=== PATIENT | male | born 1990 | race African-American/Black ===

== ENCOUNTER 2017-03-11 08:08 | Inpatient (IN) | payer BC, OTHER ==
[~2017-03-11] VITALS: Ht 185.4 cm; Wt 103.4 kg
[~2017-03-11 08:08] MED LIST: Gabapentin PO; HYDR-3895 PO; QUET200T PO
[2017-03-12 19:15] VITALS: BP_SYST 129; BP_SYST 139; BP_DIAS 56; BP_DIAS 82
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
[2017-03-12 21:30] VITALS: BP 139/82
[2017-03-13] VITALS (7 sets, daily range): BP systolic 108–147; BP diastolic 66–93
--- NOTE | 2017-03-13 00:12 | NUR ---
PRN Robaxin, Benadryl, and one time Ativan Pt c/o body aches 5/10, anxiety, restlessness, and inability to sleep. He has visible sweat on the forehead and mild tremors. CIWA 9 and COWS 3. PRN Robaxin, Benadryl, and one time Ativan administered per orders.
--- NOTE | 2017-03-13 01:12 | NUR ---
PRN Robaxin, Benadryl, and one time Ativan reassessment PRN Robaxin, Benadryl, and one time Ativan effective. Pt is lying in bed resting with eyes closed. Respirations even and unlabored. Safety measures in place.
[2017-03-13 01:52] LABS: *AMPHETAMINE, URINE NEGATIVE (NEGATIVE); *BARBITURATE, URINE NEGATIVE (NEGATIVE); *CANNABINOID, URINE NEGATIVE (NEGATIVE); *COCCAINE, URINE POSITIVE (NEGATIVE); *OPIATE, URINE POSITIVE (NEGATIVE); *PHENCYCLIDINE SCREEN,URINE NEGATIVE (NEGATIVE)
[2017-03-13] MEDS ORDERED: MIRT15TA7 PO (02:49)
[2017-03-13] MEDS ORDERED: RANI-563 PO (02:49)
[2017-03-13] MEDS ORDERED: HYDR-3026 PO (02:49)
[2017-03-13] MEDS ORDERED: GABA600T2 PO (02:49)
[2017-03-13] MEDS ORDERED: GABA800T2 PO (02:49)
[2017-03-13] MEDS ORDERED: NALT50TA PO (02:49)
[2017-03-13] MEDS ORDERED: QUET200T PO (02:49)
[2017-03-13] MEDS ORDERED: CLON0.2T PO (02:49)
[2017-03-13] MEDS ORDERED: ESCI20TA37 PO (02:49)
[2017-03-13] MEDS ORDERED: QUET100T PO (02:49)
[2017-03-13] MEDS ORDERED: TIZA4TAB4 PO (02:49)
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
--- NOTE | 2017-03-13 07:20 | NUR ---
END OF SHIFT Report provided to day shift nurse. Pt is a 26 yo male admitted to [facility] on 03/12 at 1935 for BZD, ETOH, and Opiate dependence w/ a h/o using cocaine, LSD, and mushroom. Allergic to naloxone, full code status, and on a regular diet. PRN Robaxin, PRN Benadryl, and One time Ativan administered. 0400 CIWA 2 and COWS 1. He drank 600mL and slept for 5 hours. Fall and seizure precautions in place. Bed is down with call light in reach.
[2017-03-13 08:20] LABS: ETHANOL < 3 MG/DL (0-0)
[2017-03-13 08:22] LABS: BASOPHILS # (AUTO) 0.1 K/uL (0.0-8.0); BASOPHILS % (AUTO) 0.9 % (0.0-2.0); EOSINOPHILS # (AUTO) 0.2 K/uL (0.0-0.7); EOSINOPHILS % (AUTO) 2.9 % (0.0-7.0); HEMATOCRIT 42.6 % (40-50); HEMOGLOBIN 14.1 G/DL (14.0-18.0); LYMPHOCYTES # (AUTO) 2.1 K/UL (0.8-4.8); LYMPHOCYTES % (AUTO) 33.6 % (20.5-51.5); MEAN CORPUSCULAR HEMOGLOBIN 29.5 UUG (27.0-31.0); MEAN CORPUSCULAR HGB CONC 33 g/dL (32.0-37.0); MEAN CORPUSCULAR VOLUME 89.1 FL (82.0-92.0); MONOCYTES # (AUTO) 0.8 K/UL (0.1-1.30); MONOCYTES % (AUTO) 12.6 % (0.0-11.0); PLATELET COUNT (AUTO) 241 K/UL (150-450); RED BLOOD CELL COUNT(AUTO) 4.79 MIL/UL (4.7-6.1)
[2017-03-13 08:25] LABS: ALANINE AMINOTRANSFERASE 25 U/L (16-63); ALKALINE PHOSPHATASE 86 U/L (50-136); ASPARTATE AMINOTRANSFERASE 19 U/L (15-37); BILIRUBIN,TOTAL 0.3 mg/dL (0.2-1.0); CARBON DIOXIDE 30 mmol/L (21-32); CHLORIDE 104 mmol/L (98-107); CREATININE 0.9 mg/dL (0.6-1.3); GLUCOSE 106 mg/dL (74-106); MAGNESIUM 1.8 mg/dL (1.8-2.4); POTASSIUM 3.5 mmol/L (3.5-5.1); TOTAL PROTEIN, SERUM 6.4 g/dL (6.4-8.2)
[2017-03-13 08:33] LABS: UREA NITROGEN, BLOOD 14 mg/dL (7-18)
[2017-03-13 08:34] LABS: WHITE BLOOD COUNT (AUTO) 6.2 K/UL (4.0-11.2)
[2017-03-13 08:58] LABS: THYROID STIMULATING HORMONE 1.264 mIU/mL (0.358-3.740)
--- NOTE | 2017-03-13 10:24 | NUR ---
Medication Refusal/MD Communication Pt refused scheduled morning medication d/t having an upset stomach and wanting to see MD first. MD made aware, with no further orders received.
--- NOTE | 2017-03-13 10:25 | NUR ---
PPD Refusal Pt refuses PPD administration at this time. Prefers to speak with MD first. May reconsider.
--- NOTE | 2017-03-13 11:50 | NUR ---
1115 Diazepam Held [place]ombstone Setter held medication ordered d/t sedation. Dr. Luna on the unit and aware. Re-evaluate for next scheduled dose. Will continue to monitor, support and encourage according to plan of care.
--- NOTE | 2017-03-13 18:28 | NUR ---
PRN Robaxin Pt complain of generalized body aches. Asks for Robaxin by name. Eyelet Maker administers medication per MD order and pt tolerated well.
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
--- NOTE | 2017-03-13 21:43 | NUR ---
PRN Clonidine, Robaxin, and Zofran Pt reports anxiety, restlessness, body aches, and nausea. He is observed with flushed face. PRN Clonidine, Robaxin, and Zofran administered.
--- NOTE | 2017-03-13 22:43 | NUR ---
PRN Clonidine, Robaxin, and Zofran reassessment Pt reports PRN Clonidine somewhat effective. He continues to have some anxiety. Nausea and body aches are relieved.
--- NOTE | 2017-03-13 23:27 | NUR ---
PRN Motrin, Mylanta, and Vistaril Pt reports anxiety, headache, and acid indigestion. He explains that when he closes his eyes he visualizes traumatic experiences from his past. He is restless in bed, his face is flushed, and skin is moist. Provided support. COWS 12 and CIWA 9. Pt denies the need for subutex at this time. Valium taper due. PRN Motrin, Mylanta, Vistaril administered. HS Seroquel administered closer to bed time per pt. request.
[2017-03-14] VITALS: BP 144/91
--- NOTE | 2017-03-14 00:27 | NUR ---
PRN Motrin, Mylanta, and Vistaril reassessment VT Motrin, Mylanta, and Vistaril effective. Pt is lying in bed resting with eyes closed. Respirations even and unlabored. Safety measures in place.
[2017-03-14 04:45] VITALS: BP 128/72
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
--- NOTE | 2017-03-14 07:32 | NUR ---
START OF SHIFT Received report from night nurse. 26 year old male patient admitted on 03/11/17 for benzos, opiates and ETOH withdrawals. Reports allergies to naloxone. Pt reports hx of seizures, last seniure was in september 2016. Pt remains safe throughout hospitalization. Most recent COWS are 5 and CIWA 3. PRN Robaxin, Clonidine, Motrin, Mylanta and Vistaril administered and effective. Pt slept for 8 hours. Pt v/s remain WNL. All needs met at this time. Will continue to monitor.
[2017-03-14 08:37] VITALS: BP 119/87
[2017-03-14 09:07] LABS: HEPATITIS B SURFACE AG Negative (Negative)
[2017-03-14 12:47] VITALS: BP 104/65
[2017-03-14 17:06] VITALS: BP 100/74
--- NOTE | 2017-03-14 19:13 | NUR ---
END OF SHIFT Endorsed to night nurse. 26 year old male patient admitted on 03/11/17 for benzos, opiates and ETOH withdrawals. Reports allergies to naloxone. Pt tolerates ordered taper well, and symptoms of withdrawal discomfort is managed well with ordered medications. No PRNs needed or administered. Pt v/s remain WNL. All needs met at this time. Most recent COWS 5, CIWA 5. Night nurse will continue to monitor.
--- NOTE | 2017-03-14 19:30 | NUR ---
START OF SHIFT Received report from day shift nurse. Pt is a 26 y/o male, admitted on 03/11/17 for ETOH, benzo, and opiate withdrawl. Pt dependent on xanax, ETOH (whiskey), heroin, cocaine, LSD, and mushrooms. Pt is A/O x4, full code, allergic to naloxone, regular diet, seizure and fall precautions. Pt reports PMH of seizure (r/t w/d x 3, last 09/18), anxiety, depression and hx of broken ribs and herpes. Pt is on day 2 of 5 Valium taper and day 1 of 4 Subutex taper. Pt slept 5 hours last night and was awake during day shift. Pt did not receive any PRN meds during day shift. Last COW 7, CIWA 8 at 1600. Upon greeting, pt was sitting in bed drawing. Pt was complaining of body aches, nausea, anxiety and agitation. Denies vomiting or diarrhea. Safety measures in place, call light within reach. Will continue to monitor.
[2017-03-14 20:00] VITALS: BP 112/91
--- NOTE | 2017-03-14 21:16 | NUR ---
PRN ZOFRAN, ROBAXIN, AND MOTRIN ADMINISTRATION PRN zofran, robaxin, and motrin given d/t pt reporting intermittent moderate nausea, generalized body aches, headache, and pain in lower back and shins. Respirations 16, even and unlabored. Safety measures in place. Call light within reach. Will continue to monitor.
--- NOTE | 2017-03-14 22:16 | NUR ---
PRN [place] MOTRIN REASSESSMENT Pt is laying in bed with eyes closed. Respirations are 18, even and unlabored. Safety measures in place. Call light within reach.
--- NOTE | 2017-03-15 | NUR ---
CIWA AND COW DEFERRED CIWA and COW deferred. Pt is laying down with eyes closed. Respirations 16, even and unlabored. Safety measures in place. Call light within reach.
--- NOTE | 2017-03-15 | NUR ---
REFUSED VITALS Pt refused 0000 vitals and did not want to be awaken. Respirations 16, even and unlabored. Safety measures in place. Call light within reach.
[2017-03-15 04:00] VITALS: BP 140/85
--- NOTE | 2017-03-15 04:56 | NUR ---
PRN CLONIDINE, VALIUM, ZOFRAN PRN clonidine, valium, zofran given. Pt reports anxiety, agitation, body aches, chills, sweats, runny nose, nausea, pin and needles in extremities. BP 140/85, HR 84, COW 8, CIWA 11. Safety measures in place. Call light within reach. Will continue to monitor.
--- NOTE | 2017-03-15 05:56 | NUR ---
PRN CLONIDINE, VALIUM, AND ZOFRAN REASSESSMENT Pt is laying in bed with eyes closed. Respirations are 18, even and unlabored. Safety measures in place. Call light within reach.
--- NOTE | 2017-03-15 05:56 | NUR ---
COW AND CIWA REASSESSMENT DEFERRED COW and CIWA reassessment after PRN Clonidine and Valium deferred d/t pt laying in bed with eyes closed. Respirations are 18, even and unlabored. Safety measures in place, call light within reach.
--- NOTE | 2017-03-15 07:06 | NUR ---
END OF SHIFT Report given to day shift nurse. Pt is a 26 y/o male, admitted on 03/11/17 for ETOH, benzo, and opiate withdrawl. Pt dependent on xanax, ETOH (whiskey), heroin, cocaine, LSD, and mushrooms. Pt is A/O x4, full code, allergic to naloxone, regular diet, seizure and fall precautions. Pt reports PMH of seizure (r/t w/d x 3, last 09/18), anxiety, depression and hx of broken ribs and herpes. Pt started 5 day Valium taper on 03/13/17 and 4 day Subutex taper on 03/14/17. Pt received PRN robaxin, motrin, and zofran at 2116 for body aches, moderate nausea, headache, low back pain. Pt also complained of anxiety, agitation, runny nose, and pins and needles sensation. COW 11, CIWA 15 at 2100. Pt slept for 8 hours after PRN medication, suggesting relief of symptoms. Upon awaking pt reported night terrors, night sweats, chills, body aches, runny nose, nausea, anxiety, agitation, low back pain and pins and needles sensation. COW 8, CIWA 11 at 0400. PRN Valium, Clonidine, Zofran given for withdrawal symptoms. Pt was laying in bed with eyes closed after last PRN medications (COW/CIWA reassessment deferred). Last vitals: T 98.8, HR 84, R 18, 02 97, BP 140/85. Intake 1710 ml, void x 2. Last BM on 03/13/17. Respirations 18, even and unlabored. Lungs clear upon auscultation. Denies vomiting, diarrhea, chest pain. Safety measures in place. Call light within reach. Pts needs have been met.
--- NOTE | 2017-03-15 07:45 | NUR ---
START OF SHIFT NOTE Received report from night nurse, 26 year old male patient admitted for benzo, opiates and ETOH withdrawals. Reports allergies to naloxone. Pt reports PMH of seizures, last seizure was in september 2016. Pt were given PRN Zofranx2, Robaxin, Motrin, Clonidine Valium and effective. Pt slept for 8 hours. Pt v/s remain WNL. Received pt alert awake oriented x4 no s/s of distress noted, Skin warm and dry to touch. Educated pt regarding plan of the day and medication regimen with good verbal understanding. All safety measures in place, call light within reach. Will continue to monitor.
[2017-03-15 08:00] VITALS: BP 105/62
[2017-03-15 12:00] VITALS: BP 102/60
--- NOTE | 2017-03-15 14:13 | NUR ---
PRN ZOFRAN Pt c/o of nausea, x1 emesis present also. PRN Zofran 4mg SL administered as ordered. Will cont to monitor for effectiveness.
--- NOTE | 2017-03-15 14:33 | NUR ---
ZOFRAN PO REASSESSMENT Pt reported medication was not effective, reported x2 emesis.
--- NOTE | 2017-03-15 15:34 | NUR ---
PRN IM ZOFRAN Pt reported emesis x2 Po Zofran did not effective. Administered PRN IM Zofran as ordered. Will cont to monitor for effectiveness.
[2017-03-15 16:00] VITALS: BP 135/96
--- NOTE | 2017-03-15 16:02 | NUR ---
SUBUTEX/VALIUM x1 GIVEN COWS-10, CIWA-11, one time Subutex 4mg SL/Valium 10mg Po given. Will monitor for effectiveness.
--- NOTE | 2017-03-15 16:04 | NUR ---
ZOFRAN IM REASSESSMENT Pt reported Zofran IM effective nausea and emesis improved.
--- NOTE | 2017-03-15 16:32 | NUR ---
REASSESSMENT SUBUTEX 4 MG SL Per patient PRN Subutex was effective in reducing pt;s withdrawal symptoms. COWS-7.
--- NOTE | 2017-03-15 17:02 | NUR ---
REASSESSMENT VALIUM 10 MG PO Per patient x1 Valium was effective in reducing pt's withdrawal symptoms. CIWA-6.
--- NOTE | 2017-03-15 19:00 | NUR ---
END OF SHIFT NOTE Pt presented with anxiety, agitation, chills, nausea, vomiting. Pt was given PRN Zofran Po ineffective, Zofran IM was effective, X1 dose Subutex 4mg /Valium 10mg effective. Pt cont with Subutex and Valium taper tolerating well. Pt attended groups and activities. Vital signs WNL. Skin intact warm and dry to touch. Last CIWA-6, COWS-7. Encourage Po fluids as tolerated. All safety measures in place, call light within reach. Pt endorsed to night nurse in stable condition.
--- NOTE | 2017-03-15 19:00 | NUR ---
START OF SHIFT NOTE: Patient is a 26 year old male admitted to [facility] on 03/11/2017 for Benzodiazepines, Alcohol, Opioid, and Cocaine dependence. Patient continue 4 Day Subutex since 03/14/2017 and 5 Day Valium taper since , tolerated well without ASE. Patient reports Allergy to Naloxone, is on Full Code, Regular Diet, is Fall and Seizures Precautions. PMH: Anxiety; Depression; Seizures r/t withdrawal x3. Last Seizures was on "09/2016 r/t withdrawal. History of broken ribs, History of Herpes. Patient reports substance use: 1." Xanax PO 2 mg every day x 6 months. Last used on 03/09/2017". 2. "ETOH/Whiskey PO 325 ml every day x 6 months. Last drank 325 ml on 03/11/2017". 3. "Heroin via IV 3-4 grams every day x 6 months. Last used 1 gram on 03/12/2017". 4. "Cocaine 1 gram via IV x 1 week x 6 months. Last used 1 gram on 03/10/2017". 5. "LSD occasional use". 6. "Mushrooms occasional use". Patient report's multiple detox and rehabilitation programs. "Last Detox was in [place] on 2015". Upon endorsement by day shift nurse, patient is alert and oriented x4. VS WNL. Patient denies pain now: "0/10". COWS 7, CIWA 7. The patient reported the following symptoms of withdrawal: anxiety, agitation, nervousness, tremors that can be felt, diaphoresis, restless legs, and fatigue. Patient denies SI/HI. Upon initial assessment, patient's Respirations unlabored and even. Patient denies SOB and chest pain. Lungs Sounds are clear bilaterally. Bowel Sounds active in all x4 quadrants. Abdomen is soft and non-tender. PERRLA, brisk capillary refill, economic consultant equal and strong. Skin is intact, warm and dry to touch. Encourage fluids as tolerated. Encourage to attend activities groups. All needs met. Safety measures on place. Call light within reach, bed in lowest position and locked, padded rails up bilaterally rails up bilaterally. Patient endorsed by day shift nurse. Report received. Will continue to monitor closely.
[2017-03-15 20:00] VITALS: BP 133/87
[2017-03-16] VITALS: BP 140/87
--- NOTE | 2017-03-16 00:36 | NUR ---
PRN ZOFRAN 4 MG PO RAPDIS SL ADMINISTRATION. Patient c/o nausea and vomiting, and asked aid. PRN Zofran 4 mg SL administrated as ordered. Patient tolerated well. All needs met. Safety measures on place. Call light within reach, bed in lowest position and locked, padded rails up bilaterally rails up bilaterally. Will continue to monitor closely.
--- NOTE | 2017-03-16 00:36 | NUR ---
PRN CLONIDINE 0.1 MG 1 TAB PO Patient c/o increased anxiety. PRN Clonidine 0.1 mg 1 tab PO administrated with full glass of water as ordered. Patient tolerated well. All needs met. Safety measures on place. Call light within reach, bed in lowest position and locked, padded rails up bilaterally rails up bilaterally. Will continue to monitor closely.
--- NOTE | 2017-03-16 01:36 | NUR ---
RE ASSESSMENT Patient reported PRN Zofran 4 mg SL was effective. No more nausea and vomiting. All needs met. Safety measures on place. Call light within reach, bed in lowest position and locked, padded rails up bilaterally rails up bilaterally. Will continue to monitor closely.
--- NOTE | 2017-03-16 01:36 | NUR ---
RE-ASSESSMENT Patient reports that PRN Clonidine PO was not effective. Patient c/o increased anxiety. Administered Vistaril 50 mg PO as ordered for anxiety.
--- NOTE | 2017-03-16 01:41 | NUR ---
PRN ROBAXIN 750 MG 1 TAB PO AND PRN VISTARIL 50 MG 2 CAPS. PO ADMINISTRATION Patient c/o myalgia and increased anxiety. PRN Robaxin 750 mg 1 tab PO and PRN Vistaril 50 mg 2 caps PO administrated with full glass of water as ordered. Patient tolerated well. All needs met. Safety measures on place. Call light within reach, bed in lowest position and locked, padded rails up bilaterally rails up bilaterally. Will continue to monitor closely.
--- NOTE | 2017-03-16 02:41 | NUR ---
RE-ASSESSMENT Patient is sleeping. Respirations even and unlabored. RR:15. PRN Robaxin 750 mg PO for myalgia and PRN Vistaril 50 mg 2 caps PO were effective. All needs met. Safety measures on place. Call light within reach, bed in lowest position and locked, padded rails up bilaterally rails up bilaterally. Will continue to monitor closely.
[2017-03-16 04:00] VITALS: BP 110/59
--- NOTE | 2017-03-16 07:08 | NUR ---
END OF SHIFT NOTE: Patient is a 26 year old male admitted to [facility] on 03/11/2017 for Benzodiazepines, Alcohol, Opioid, and Cocaine dependence. Patient continue 4 Day Subutex since 03/14/2017 and 5 Day Valium taper since , tolerated well without ASE. Patient reports Allergy to Naloxone, is on Full Code, Regular Diet, is Fall and Seizures Precautions. PMH: Anxiety; Depression; Seizures r/t withdrawal x3. Last Seizures was on "09/2016 r/t withdrawal. History of broken ribs, History of Herpes. Patient remains compliant with treatment, medications, and diet regime. Patient reports NKA, is Full Code, Regular Diet. Patient is Fall and Seizures Precautions. VS at 0400: T: 98'1, BP: 110/59, HR:75, RR:16, RA O2Sat: 96%. Patient denies any pain now: "0/10". COWS 4, CIWA 3 at 0400. Respirations unlabored and even. Skin is intact, warm and dry to touch. Encourage fluids as tolerated. Encourage to attend activities groups. PRN Zofran 4 mg RAPDIS SL administrated @0036 was effective. PRN Clonidine 0.1 mg 1 tab PO administrated @0036 for anxiety was not effective, and PRN Robaxin 750 mg 1 tab PO administrated @0141 for myalgia, and PRN Vistaril 50 mg 2 caps PO administrated @ 0141 for anxiety were effective. Patient slept 4 hours, intake 1,183 ml, voided x2, emesis x4. All needs met. Safety measures on place. Call light within reach, bed in lowest position and locked, padded rails up bilaterally. Patient endorsed to day shift nurse.
--- NOTE | 2017-03-16 07:30 | NUR ---
START OF SHIFT Pt 26 y/o male admitted for bzd, etoh, and opiate dependence. Pt received in room awake watching television. Pt alert and oriented to name, place, and time. Perrla. Skin warm and slightly moist to touch. Respirations even and unlabored. Pt appears slightly anxious with pressured speech during conversation. It was reported that pt slept for 4 hours last night. Bed on lowest position with side rails x2 up for safety. Call light within reach. No distress noted at this time.
[2017-03-16 08:03] VITALS: BP 125/89
--- NOTE | 2017-03-16 12:56 | NUR ---
PRN pt states feels anxious. Vistaril po prn per MD order given and tolerated well.
--- NOTE | 2017-03-16 12:57 | NUR ---
PRN Pt states feels very anxious. Pt with pressured speech noted. Catapres po prn per MD order given and tolerated well.
--- NOTE | 2017-03-16 12:58 | NUR ---
PRN Pt states has body aches 6/10. Robaxin po prn per MD order given and tolerated well.
[2017-03-16 12:59] VITALS: BP 122/78
--- NOTE | 2017-03-16 13:57 | NUR ---
LAUREN FERNANDES Pt observed in room laying on bed watching television. No distress noted at this time.
--- NOTE | 2017-03-16 13:58 | NUR ---
PRN EVAL Pt states body aches 08/14.
[2017-03-16 17:18] VITALS: BP 130/73
--- NOTE | 2017-03-16 18:42 | NUR ---
END OF SHIFT Pt 26 y/o male admitted for bzd, etoh, and opiate dependence. Pt alert and oriented to name, place, and time. Perrla. Skin warm and slightly moist to touch. Respirations even and unlabored. Pt with periods of anxiety this morning. Pt observed observed mostly in room , but did attend group activity in the afternoon. Pt medication compliant and tolerated well. No ASE noted. Bed on lowest position with side rails x2 up for safety. Call light within reach. No distress noted at this time.
--- NOTE | 2017-03-16 18:50 | NUR ---
START OF SHIFT NOTE: Patient is a 26 year old male admitted to [facility] on 03/11/2017 for Benzodiazepines, Alcohol, Opioid, and Cocaine dependence. Patient continue 4 Day Subutex since 03/14/2017 and 5 Day Valium taper since , tolerated well without ASE. Patient reports Allergy to Naloxone, is on Full Code, Regular Diet, is Fall and Seizures Precautions. PMH: Anxiety; Depression; Seizures r/t withdrawal x3. Last Seizures was on "09/2016 r/t withdrawal. History of broken ribs, History of Herpes. Patient reports substance use: Xanax PO 2 mg every day x 6 months. Last used on 03/09/2017. ETOH/Whiskey PO 325 ml every day x 6 months. Last drank 325 ml on 03/11/2017. Heroin via IV 3-4 grams every day x 6 months. Last used 1 gram on 03/12/2017. Cocaine 1 gram via IV x 1 week x 6 months. Last used 1 gram on 03/10/2017. LSD occasional use. Mushrooms occasional use . Upon endorsement by day shift nurse, patient is alert and oriented x4. VS WNL. Patient reports pain now: "0/10". COWS 5, CIWA 5. The patient reported the following symptoms of withdrawal: anxiety, agitation, nervousness, tremors that can be felt, diaphoresis, restless legs, and fatigue. Patient denies SI/HI. Upon initial assessment, patient's Respirations unlabored and even. Patient denies SOB and chest pain. Lungs Sounds are clear bilaterally. Bowel Sounds active in all x4 quadrants. Abdomen is soft and non-tender. PERRLA, brisk capillary refill, manager sas equal and strong. Skin is intact, warm and dry to touch. Encourage fluids as tolerated. Encourage to attend activities groups. All needs met. Safety measures on place. Call light within reach, bed in lowest position and locked, padded rails up bilaterally rails up bilaterally. Patient endorsed by day shift nurse. Report received. Will continue to monitor closely.
[2017-03-16 20:00] VITALS: BP 150/84
--- NOTE | 2017-03-16 21:03 | NUR ---
PRN ROBAXIN 750 MG 1 TAB PO AND PRN VISTARIL 50 MG 2 CAPS PO ADMINISTRATION Patient c/o myalgia and increase anxiety. PRN Robaxin 750 mg 1 tab PO for myalgia and PRN Vistaril 50 mg 2 caps PO for anxiety administrated with full glass of water as ordered. Patient tolerated well. All needs met. Safety measures on place. Call light within reach, bed in lowest position and locked, padded rails up bilaterally rails up bilaterally. Will continue to monitor closely.
--- NOTE | 2017-03-16 22:03 | NUR ---
RE-ASSESSMENT Patient is sleeping. Respirations even and unlabored. RR:16. PRN Robaxin 750 mg PO for myalgia and PRN Vistaril 50 mg 2 caps PO were effective. All needs met. Safety measures on place. Call light within reach, bed in lowest position and locked, padded rails up bilaterally rails up bilaterally. Will continue to monitor closely.
[2017-03-17] VITALS: BP 114/69
[2017-03-17 04:00] VITALS: BP 115/68
--- NOTE | 2017-03-17 07:12 | NUR ---
END OF SHIFT NOTE: Patient is a 26 year old male admitted to [facility] on 03/11/2017 for Benzodiazepines, Alcohol, Opioid, and Cocaine dependence. Patient continue 4 Day Subutex since 03/14/2017 and 5 Day Valium taper since , tolerated well without ASE. Patient reports Allergy to Naloxone, is on Full Code, Regular Diet, is Fall and Seizures Precautions. PMH: Anxiety; Depression; Seizures r/t withdrawal x3. Last Seizures was on "09/2016 r/t withdrawal. History of broken ribs, History of Herpes. Patient remains compliant with treatment, medications, and diet regime. Patient reports NKA, is on Full Code, Regular Diet. Patient is Fall and Seizures Precautions. Last VS at 0400: T: 97.7, BP: 115/68, HR:61, RR:16, RA O2Sat: 98%. Pain level: "0/10". COWS 5, CIWA 4 at 0400. Respirations unlabored and even. Skin is intact, warm and dry to touch. Encourage fluids as tolerated. Encourage to attend activities groups. PRN Robaxin 750 mg 1 tab PO administrated @ 2103 for myalgia, and PRN Vistaril 50 mg 2 caps PO administrated @ 2103 for anxiety were effective. Patient slept 7 hours, intake 1,376 ml, voided x2. All needs met. Safety measures on place. Call light within reach, bed in lowest position and locked, padded rails up bilaterally. Patient endorsed to day shift nurse.
[2017-03-17 08:00] VITALS: BP 127/85
--- NOTE | 2017-03-17 08:15 | NUR ---
START OF SHIFT NOTE 26 year old male, admitted 03/11/2017 for Benzodiazepines, Alcohol, Opioid, and Cocaine dependence. On a 4 Day Subutex taper beginning 03/14/2017 and 5 Day Valium taper beginning . Pt reports allergy to Naloxone, is on Full Code, Regular Diet, is Fall and Seizures Precautions. PMH: Anxiety; Depression; Seizures r/t withdrawal x3. Last Seizures was on "09/2016 r/t withdrawal. History of broken ribs, History of Herpes. On day 4 of the 5 day Valium taper. On day 3 of the 4 day Subutex taper. Received report from rubber engraver nurse. Last COW 5 and CIWA 4. Left upper arm wound covered with gauze dressing which is dry and intact. Will change dressing and take photo to document healing this shift. 0730 Pt alert and oriented. Reports back and shoulder stiffness and some nausea. Offered PRN medications Catapress and Robaxin with am meds, Catapress if blood pressure within parameters per doctor orders. Pt accepted offer for PRN meds with am medications. Safety measures on place. Call light within reach, bed in lowest position and locked, padded rails up bilaterally. Will continue to monitor.
--- NOTE | 2017-03-17 09:46 | NUR ---
PRN MEDICATION Pt complaint of back pain 12/12. Given Robaxin. Pt complaint of anxiety, given Catapress and Vistaril.
--- NOTE | 2017-03-17 10:40 | NUR ---
PRN REASSESSMENT Pt ambulating in room and hallway, went to patio, no facial grimacing, appears calm, no pressured speech, no distress at this time.
[2017-03-17 12:00] VITALS: BP 118/76
--- NOTE | 2017-03-17 13:35 | NUR ---
PRN MEDICATION REASSESSMENT Pt states relief of nausea after PRN Bentyl dose.
[2017-03-17 17:52] VITALS: BP 131/74
--- NOTE | 2017-03-17 18:54 | NUR ---
END OF SHIFT Pt 26 y/o male admitted for bzd, etoh, and opiate dependence. Pt alert and oriented to name, place, and time. Perrla. Skin warm and slightly moist to touch. Respirations even and unlabored. Pt with periods of anxiety this morning. Pt observed observed mostly in room , but did attend group activity today. Pt was seen by MD today. Pt medication compliant and tolerated well. No ASE noted. Bed on lowest position with side rails x2 up for safety. Call light within reach. No distress noted at this time.
--- NOTE | 2017-03-17 18:54 | NUR ---
START OF SHIFT NOTE: Patient is a 26 year old male admitted to [facility] on 03/11/2017 for Benzodiazepines, Alcohol, Opioid, and Cocaine dependence. Patient continue 4 Day Subutex since 03/14/2017 and 5 Day Valium taper since , tolerated well without ASE. Patient reports Allergy to Naloxone, is on Full Code, Regular Diet, is Fall and Seizures Precautions. PMH: Anxiety; Depression; Seizures r/t withdrawal x3. Last Seizures was on "09/2016 r/t withdrawal. History of broken ribs, History of Herpes. VS: T: 98.8, BP: 139/76, HR:85, RR:17, RA O2Sat: 100%.. Patient reports pain now: "01/11". COWS 5, CIWA 5. The patient reported the following symptoms of withdrawal: anxiety, agitation, nervousness, tremors that can be felt, diaphoresis, restless legs, and fatigue. Patient denies SI/HI. Upon initial assessment, patient's Respirations unlabored and even. Patient denies SOB and chest pain. Lungs Sounds are clear bilaterally. Bowel Sounds active in all x4 quadrants. Abdomen is soft and non-tender. PERRLA, brisk capillary refill, animal care specialist equal and strong. Skin is intact, warm and dry to touch. Encourage fluids as tolerated. Encourage to attend activities groups. All needs met. Safety measures on place. Call light within reach, bed in lowest position and locked, padded rails up bilaterally rails up bilaterally. Patient endorsed by day shift nurse. Report received. Will continue to monitor closely.
[2017-03-17 20:00] VITALS: BP 139/76
[2017-03-18] VITALS: BP 116/72
[2017-03-18 04:00] VITALS: BP 101/60
--- NOTE | 2017-03-18 07:08 | NUR ---
END OF SHIFT NOTE: Patient is a 26 year old male admitted to [facility] on 03/11/2017 for Benzodiazepines, Alcohol, Opioid, and Cocaine dependence. Patient continue 4 Day Subutex since 03/14/2017 and 5 Day Valium taper since , tolerated well without ASE. Patient reports Allergy to Naloxone, is on Full Code, Regular Diet, is Fall and Seizures Precautions. PMH: Anxiety; Depression; Seizures r/t withdrawal x3. Last Seizures was on "09/2016 r/t withdrawal. History of broken ribs, History of Herpes. Patient remains compliant with treatment, medications, and diet regime. Patient reports NKA, is on Full Code, Regular Diet. Patient is Fall and Seizures Precautions. Last VS at 0400: T: 97.4, BP: 101/60, HR:63, RR:15, RA O2Sat: 96%. Neck pain level: "10/10". Patient refused any PRN pain medication now. Patient educated non-pharmacological pain relief techniques. Patient return his knowledge back by verbalized understanding. COWS 5, CIWA 4 at 0400. Respirations unlabored and even. Skin is intact, warm and dry to touch. Encourage fluids as tolerated. Encourage to attend activities groups. No PRN Medications administrated during my shift. Patient slept 7 hours, intake 908 ml, voided x2. All needs met. Safety measures on place. Call light within reach, bed in lowest position and locked, padded rails up bilaterally. Patient endorsed to day shift nurse.
--- NOTE | 2017-03-18 07:25 | NUR ---
Start of Shift Tsa Screener received report on 26 year old male admitted on 03/12/17 for ETOH, Xanax, Heroin and Cocaine detoxification. Pt reports an allergy to Naloxone, eats a regular diet and is a full code. Reports PMH of herpes, anxiety, and depression. Pt has multiple scars and per report, including two on left upper arm. Pt also has an abscess on the right forearm. Pt currently on a Valium and Subutex taper, tolerating well. No PRN during the maintenance technician 3rd shift. Last COWS 5 and CIWA 4 as recorded by maintenance technician 3rd shift. Tsa Screener encounters pt in room resting with eyes closed. Respiration even and unlabored, rise and fall of chest noted. Bed in low position, wheels locked, side rails up x2 and call light within reach.
[2017-03-18 08:02] VITALS: BP 92/55
--- NOTE | 2017-03-18 12:00 | NUR ---
COWS/CIWA Deferred Pt not cooperative with VS or assessment questions wanting to be left alone to sleep.
--- NOTE | 2017-03-18 12:00 | NUR ---
VS Refused Pt resting with eyes closed, respirations even and unlabored with rise and fall of chest noted. Pt irritable when senior technical writer tries to obtain VS. Asks to not be awakened
[2017-03-18 16:21] VITALS: BP 104/59
--- NOTE | 2017-03-18 18:49 | NUR ---
End of Shift Machine Stripper provided report on 26 year old male admitted on 03/12/17 for ETOH, Xanax, Heroin and Cocaine detoxification. Pt reports an allergy to Naloxone, eats a regular diet and is a full code. Reports PMH of herpes, anxiety, and depression. Pt has multiple scars and per report, including two on left upper arm. Pt also has an abscess on the right forearm. Pt currently on a Valium and Subutex taper, tolerating well. No PRN during my shift. Last COWS 3 and CIWA 2 1600. Pt is A/O x4, cooperative and able to communicate his needs. Has been somnolent and isolative to room today. Can be somatic. Bed in low position, wheels locked, side rails up x2 and call light within reach.
[2017-03-18 20:00] VITALS: BP 134/82
--- NOTE | 2017-03-18 20:00 | NUR ---
Start of Shift Pt is a 26 year old male admitted for Benzo/ETOH, Opioid dependence, placed on 5 day Valium and 4 day Subutex taper. Pt reported using Xanax 20mg/daily, Whiskey 325ml/daily, Heroin IV 3-4g/daily, Cocaine IV 1g x1 weekly, LSD & mushrooms occasionally. PMH: Seizure hx due to withdrawal x3 09/2016, hx of broken ribs, h/o herpes, anxiety and depression. Pt reports allergies to Naloxone, on fall/seizure precautions, regular diet and full code. Upon assessment, pt presents of anxiety, tremors felt upon touch, reports chills with hot/cold flushes throughout body, mild bone/joint aches, skin noted with moderate sweat, denies SOB/chest pain, denies n/v/d, respirations even/unlabored, medications due. Safety measures in place, call light within reach, side rails up x2, bed locked and in low position. Will continue to monitor.
[2017-03-19] VITALS: BP 101/60
[2017-03-19 04:00] VITALS: BP 98/46
--- NOTE | 2017-03-19 04:00 | NUR ---
Vital Signs BP 98/46, pulse 74, resp 16, SpO2 97% room air, temp 98.2, no pain 0/10 COWS/CIWA deferred d/t pt sleeping to assess while pt is awake as ordered. Safety measures in place. Will continue to monitor.
--- NOTE | 2017-03-19 07:00 | NUR ---
End of Shift Pt is a 26 year old male admitted for Benzo/ETOH, opioid dependence, placed on 5 day Valium and 4 day Subutex taper. Pt reported using Xanax 20mg/daily, Whiskey 325ml/daily, Heroin IV 3-4g/daily, Cocaine IV 1g x1 weekly, LSD & mushrooms occasionally. PMH: Seizure hx due to withdrawal x3 09/2016, hx of broken ribs, h/o herpes, anxiety and depression. Pt reports allergies to Naloxone, on fall/seizure precautions, regular diet and full code. During shift, pt presented with anxiety, tremors felt upon touch, reported chills with hot/cold flushes throughout body, mild bone/joint aches, skin noted with moderate sweat scheduled taper medications administered, effective in management of s/s of withdrawal, AEB COWS 6 and CIWA 4 decreased to COWS 4 and CIWA 3. No PRN medications administered. Pt slept for 6 hours, intake of 1250 ml PO, voids x2 and stool x0. Safety measures in place, call light within reach, side rails up x2, bed locked and in low position. Endorsed to day shift nurse.
--- NOTE | 2017-03-19 07:25 | NUR ---
Start of Shift Insulator Apprentice received report on 26 year old male admitted on 03/12/17 for ETOH, Xanax, Heroin and Cocaine detoxification. Pt reports an allergy to Naloxone, eats a regular diet and is a full code. Reports PMH of herpes, anxiety, and depression. Pt has multiple scars and per report, including two on left upper arm. Pt also has an abscess on the right forearm. Pt currently on a Valium and Subutex taper, tolerating well. No PRN during the warehouse worker 2nd shift. Last COWS 4 and CIWA 3 as recorded by warehouse worker 2nd shift. Insulator Apprentice encounters pt in room resting with eyes closed. Respiration even and unlabored, rise and fall of chest noted. Bed in low position, wheels locked, side rails up x2 and call light within reach.
[2017-03-19 08:28] VITALS: BP 112/71
--- NOTE | 2017-03-19 11:16 | NUR ---
OT Clonidine/Vistaril ordered OT doses of Clonidine and Vistaril due to moderate anxiety. Pt complain of panic attack, breaths into emesis bag and states he has things under control. Endorses being accustomed to de-escalating himself from panic attacks, but did request medication. Pt somatic and needy. Medication administered by DEANA Skinner. Will continue to monitor, support and encourage according to plan of care.
--- NOTE | 2017-03-19 12:16 | NUR ---
OT Re-assessment Pt social and visible on the unit with no complaints voiced. Decreased anxiety, effective.
[2017-03-19 12:30] VITALS: BP 103/58
[2017-03-19 16:30] VITALS: BP 125/72
--- NOTE | 2017-03-19 18:44 | NUR ---
End of Shift Box Car Washer provided report on 26 year old male admitted on 03/12/17 for ETOH, Xanax, Heroin and Cocaine detoxification. Pt reports an allergy to Naloxone, eats a regular diet and is a full code. Reports PMH of herpes, anxiety, and depression. Pt has multiple scars and per report, including two on left upper arm. Pt also has an abscess on the right forearm. Pt has currently completed his tapers and is set to discharge tomorrow. No PRN during the this shift. Last COWS 3 and CIWA 2 recorded at 1600. Pt is A/O x4, makes his needs known, somatic and needy at times. Bed in low position, wheels locked, side rails up x2 and call light within reach.
[2017-03-19 20:00] VITALS: BP 119/67
--- NOTE | 2017-03-19 20:00 | NUR ---
End of Shift Pt is a 26 year old male admitted for Benzo/ETOH, Opioid dependence, placed on 5 day Valium and 4 day Subutex taper, completed. Pt reported using Xanax 20mg/daily, Whiskey 325ml/daily, Heroin IV 3-4g/daily, Cocaine IV 1g x1 weekly, LSD & mushrooms occasionally. PMH: Seizure hx due to withdrawal x3 09/2016, hx of broken ribs, h/o herpes, anxiety and depression. Pt reports allergies to Naloxone, on fall/seizure precautions, regular diet and full code. Upon assessment, pt presents of anxiety, mild bone/joint aches, denies SOB/chest pain, denies n/v/d, respirations even/unlabored. Pt is scheduled for discharged tomorrow. Safety measures in place, call light within reach, side rails up x2, bed locked and in low position. Will continue to monitor. Addendum: 03/19/17 at 2230 by ARYA RANKIN RN START OF SHIFT
[2017-03-19] MEDS ORDERED: BACL20TA PO (21:55)
[2017-03-19] MEDS ORDERED: DICY20TA28 PO (21:55)
[2017-03-19] MEDS ORDERED: IBUP-1955 PO (21:55)
[2017-03-19] MEDS ORDERED: GABA-536 PO (21:55)
[2017-03-19] MEDS ORDERED: HYDR-3895 PO (21:55)
[2017-03-19] MEDS ORDERED: FAMO20TA8 PO (21:55)
[2017-03-19] MEDS ORDERED: CLON0.2T12 PO (21:55)
[2017-03-19] MEDS ORDERED: CLON0.1T14 PO (21:55)
[2017-03-20] VITALS: BP 109/67
--- NOTE | 2017-03-20 | NUR ---
Vital Signs BP 109/67, pulse 64, resp 16, SpO2 97% room air, temp 98.2, no pain 0/10 COWS/CIWA deferred d/t pt sleeping to assess while pt is awake as ordered. Safety measures in place. Will continue to monitor.
[2017-03-20 04:00] VITALS: BP 117/70
--- NOTE | 2017-03-20 04:00 | NUR ---
Vital Signs BP 117/70, pulse 67, resp 16, SpO2 97% room air, temp 97.9, no pain 0/10 COWS/CIWA deferred d/t pt sleeping to assess while pt is awake as ordered. Safety measures in place. Will continue to monitor.
--- NOTE | 2017-03-20 07:00 | NUR ---
End of Shift Pt is a 26 year old male admitted for Benzo/ETOH, Opioid dependence, placed on 5 day Valium and 4 day Subutex taper, completed. Pt reported using Xanax 20mg/daily, Whiskey 325ml/daily, Heroin IV 3-4g/daily, Cocaine IV 1g x1 weekly, LSD & mushrooms occasionally. PMH: Seizure hx due to withdrawal x3 09/2016, hx of broken ribs, h/o herpes, anxiety and depression. Pt reports allergies to Naloxone, on fall/seizure precautions, regular diet and full code. During shift, pt presented with anxiety, mild bone/joint aches - scheduled medications administered, CIWA 2 and COWS 2. No PRN medications administered during shift. Pt slept for 6 hours, intake of 1700 ml PO, voids x2 and stool x2. Pt is scheduled for discharged today. Safety measures in place, call light within reach, side rails up x2, bed locked and in low position. Endorsed to day shift nurse.
--- NOTE | 2017-03-20 07:20 | NUR ---
Start of Shift Spray Gun Repairer Helper received report on 26 year old male admitted on 03/12/17 for ETOH, Xanax, Heroin and Cocaine detoxification. Pt reports an allergy to Naloxone, eats a regular diet and is a full code. Reports PMH of herpes, anxiety, and depression. Pt has multiple scars and per report, including two on left upper arm. Pt also has an abscess on the right forearm. Pictures taken, per report and placed in chart. Pt has completed a Valium and Subutex taper, in anticipation of today's discharge. No PRN during the evening or night nurse supervisor. Last COWS 2 and CIWA 2 as recorded by evening or night nurse supervisor. Spray Gun Repairer Helper encounters pt in room resting with eyes closed. Respiration even and unlabored, rise and fall of chest noted. Bed in low position, wheels locked, side rails up x2 and call light within reach.
[2017-03-20 08:11] VITALS: BP 115/58
[2017-03-20 08:35] VITALS: BP 115/58
--- NOTE | 2017-03-20 09:35 | NUR ---
Discharge Note Pt is discharged per ambulation to awaiting private transportation. Pt is stable with VS WNL. Denies HI/SI or A/VH, and all associated psychiatric symptoms. Pt provided with discharge education and medication education. Pt educated on medications, indication, route and times of medication and pt then provided with medication prescriptions. Pt's belongings returned and signed for. Pt's own medication returned and signature obtained. All appropriate paperwork singed and appropriate copies provided to pt. made aware of pt's departure.
== END 2017-03-20 09:35 | DRG 895 ==
LOC: SRC 03-12 18:20
PROVIDERS: ADMIT Internal Medicine; ATTEND Internal Medicine
PROC: HZ2ZZZZ Detoxification Services for Substance Abuse Treatment (ICD-10-PCS; principal; 2017-03-12)
PROC: HZ41ZZZ Group Counseling for Substance Abuse Treatment, Behavioral (ICD-10-PCS; 2017-03-14)
DX: F10.230 Alcohol dependence with withdrawal, uncomplicated (principal); F33.3 Major depressive disorder, recurrent, severe with psychotic symptoms; B00.9 Herpesviral infection, unspecified; F11.23 Opioid dependence with withdrawal; Y90.9 Presence of alcohol in blood, level not specified; Z59.0 Homelessness; K21.9 Gastro-esophageal reflux disease without esophagitis; F40.01 Agoraphobia with panic disorder; F17.210 Nicotine dependence, cigarettes, uncomplicated; F13.230 Sedative, hypnotic or anxiolytic dependence with withdrawal, uncomplicated; G47.50 Parasomnia, unspecified; F14.90 Cocaine use, unspecified, uncomplicated; Z79.899 Other long term (current) drug therapy; Z81.1 Family history of alcohol abuse and dependence
CPT/HCPCS: 36415; 70030-TC; 80307; 80346; 80353; 80361; 83735; 84443; 85025; 86580; 86592; 86705; 86803; 87340; 93005; A4663; G0480; J2405; J3411; Q0162; Q0163